=== PATIENT | male | born 1960 | race Caucasian/White ===

== ENCOUNTER 2017-11-02 10:26 | Emergency (ER) | payer OTHER ==
--- NOTE | 2017-11-02 10:54 | ED ---
General Adult HPI - General Chief complaint: Skin/Abscess/Foreign Body Stated complaint: Abscess on Face Time Seen by Provider: 11/02/17 10:37 Source: patient, RN notes reviewed Mode of arrival: ambulatory Limitations: no limitations - History of Present Illness Initial comments: 57-year-old male history of tobacco and alcohol abuse presents for evaluation of swelling in his right lower jaw. 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 He has had increased swelling over the past one week. He's had some drainage this morning which prompted his evaluation. He was previously taking clindamycin but ran out of this medication. Denies fever or chills. No other complaints. - Related Data Previous Rx's Medication Instructions Recorded Clindamycin [Cleocin] 450 mg PO Q6H #40 capsule 11/02/17 HYDROcodone/APAP 5-325MG [[place] 1 tab PO Q6HR PRN #24 tab 11/02/17 5-325] Ibuprofen [Motrin] 600 mg PO Q8HR PRN #24 tab 11/02/17 Allergies Allergy/AdvReac Type Severity Reaction Status Date / Time Penicillins Allergy Rash/Hives Verified 11/02/17 10:33 egg AdvReac Abdominal Verified 11/02/17 10:33 Pain Review of Systems ROS Statement: Those systems with pertinent positive or pertinent negative responses have been documented in the HPI. ROS Other: All systems not noted in ROS Statement are negative. Past Medical History Past Medical History: No Reported History History of Any Multi-Drug Resistant Organisms: None Reported Past Surgical History: No Surgical Hx Reported Past Psychological History: No Psychological Hx Reported Smoking Status: Current every day smoker Past Alcohol Use History: Occasional Past Drug Use History: None Reported General Exam Limitations: no limitations General appearance: alert, in no apparent distress Head exam: Present: atraumatic, normocephalic Eye exam: Present: normal appearance ENT exam: Present: other (Mass on the floor of the oral cavity right side, there is 8 cm of cellulitis and induration surrounding a central one half centimeter area of fluctuance which is freely draining on the right submandibular region.) Neck exam: Present: other (Induration throughout the anterior neck.) Respiratory exam: Present: normal lung sounds bilaterally. Absent: respiratory distress Cardiovascular Exam: Present: regular rate, normal rhythm GI/Abdominal exam: Present: soft, distended Extremities exam: Present: normal inspection, normal capillary refill Neurological exam: Present: alert, oriented X3. 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 He presented for evaluation of drainage, this appears to be a draining abscess with surrounding cellulitis. Patient states that he has had significant amount of material expressed from this. This is a known diagnosis and the patient does not want any further evaluation of the cancer. He is asking for antibiotics and pain medication. He states he will contact his primary care physician in [facility] and maintain his appointment at [facility] for evaluation. Disposition Clinical Impression: Facial abscess, Oral cancer Disposition: HOME SELF-CARE Condition: Good Instructions: Abscess (ED) Additional Instructions: Please follow up with her primary care physician and maintain appointment at [facility] Prescriptions: Clindamycin [Cleocin] 450 mg PO Q6H #40 capsule HYDROcodone/APAP 5-325MG [[place] 5-325] 1 tab PO Q6HR PRN #24 tab PRN Reason: Pain Ibuprofen [Motrin] 600 mg PO Q8HR PRN #24 tab PRN Reason: Pain Referrals: Nonstaff,Physician [Primary Care Provider] - 1-2 days Time of Disposition: 10:53
[2017-11-02 11:32] VITALS: BP 149/86; PULSE 82; RESP 12; TEMP 100.3
== END 2017-11-02 11:39 | disposition home or self-care (01) ==
LOC: EC 10:26
DX: L02.01 Cutaneous abscess of face (principal); C06.9 Malignant neoplasm of mouth, unspecified; F17.200 Nicotine dependence, unspecified, uncomplicated; Z88.0 Allergy status to penicillin; Z91.012 Allergy to eggs
CPT/HCPCS: 99282